=== PATIENT | male | born 1960 | race Caucasian/White ===

== ENCOUNTER 2024-12-19 13:29 | Emergency (ER) | payer OTHER ==
[~2024-12-19] VITALS: Ht 180.3 cm; Wt 106.6 kg
[2024-12-19 16:15] VITALS: BP 126/74; TEMP 98.1; O2SAT 98
== END 2024-12-19 16:16 | disposition home or self-care (01) ==
LOC: ER 13:58
DX: M25.521 Pain in right elbow (principal); V48.6XXA Car passenger injured in noncollision transport accident in traffic accident, initial encounter; W22.12XA Striking against or struck by front passenger side automobile airbag, initial encounter; Y93.89 Activity, other specified; Y92.415 Exit ramp or entrance ramp of street or highway as the place of occurrence of the external cause; Y99.0 Civilian activity done for income or pay
CPT/HCPCS: 73080-TC; 73090-TC